=== PATIENT | female | born 1945 | race Caucasian/White ===

== ENCOUNTER → 2019-09-13 | Outpatient (CLI) | payer MEDICARE | END | disposition home or self-care (01) | LOC: SHCH 09:26 | PROVIDERS: ATTEND Internal Medicine Cardiovascular Disease | DX: I89.0 Lymphedema, not elsewhere classified (principal); I87.2 Venous insufficiency (chronic) (peripheral) | CPT/HCPCS: 93970 ==

== ENCOUNTER → 2019-10-24 | Outpatient (CLI) | payer MEDICARE | END | disposition home or self-care (01) | LOC: SHCH 08:34 | PROVIDERS: ATTEND Internal Medicine Cardiovascular Disease | DX: I82.812 Embolism and thrombosis of superficial veins of left lower extremity (principal); Z09 Encounter for follow-up examination after completed treatment for conditions other than malignant neoplasm | CPT/HCPCS: 93971 ==

== ENCOUNTER → 2020-03-23 | Outpatient (CLI) | payer MEDICARE | END | disposition home or self-care (01) | LOC: RAH 15:04 | PROVIDERS: ATTEND Internal Medicine Cardiovascular Disease | DX: R91.8 Other nonspecific abnormal finding of lung field (principal); I50.32 Chronic diastolic (congestive) heart failure | CPT/HCPCS: 71046 ==

== ENCOUNTER → 2020-03-27 | Outpatient (CLI) | payer MEDICARE | END | disposition home or self-care (01) | LOC: SHCH 14:52 | PROVIDERS: ATTEND Internal Medicine Cardiovascular Disease | DX: I87.2 Venous insufficiency (chronic) (peripheral) (principal) | CPT/HCPCS: 93970 ==

== ENCOUNTER → 2020-05-07 | Outpatient (CLI) | payer MEDICARE | END | disposition home or self-care (01) | LOC: SHCH 10:12 | PROVIDERS: ATTEND Internal Medicine Cardiovascular Disease | DX: I87.2 Venous insufficiency (chronic) (peripheral) (principal); Z09 Encounter for follow-up examination after completed treatment for conditions other than malignant neoplasm | CPT/HCPCS: 93971 ==

== ENCOUNTER → 2021-01-07 | Outpatient (CLI) | payer MEDICARE | END | disposition home or self-care (01) | LOC: RAH 13:02 | PROVIDERS: ATTEND Internal Medicine Cardiovascular Disease | DX: I50.32 Chronic diastolic (congestive) heart failure (principal); I51.7 Cardiomegaly; Z95.0 Presence of cardiac pacemaker | CPT/HCPCS: 71046 ==

== ENCOUNTER → 2022-09-18 | Outpatient (CLI) | payer MEDICARE ==
[~2022-09-18] MED LIST: AMOX-426 PO; APIX5TAB PO; ATOR10TA69 PO; BENZ-70 PO; CALC-1125 PO; EPIN0.3P2 IM; FERR-82 PO; FEXO-263 PO; FLUT16H NS; FLUT1BLS IH; FURO80TA3 PO; GUAI120015 PO; LEVA1.2525 IH; LEVA1.255 IH; LOSA25TA41 PO; MECO10005 PO; METR59LO TP; POTA-79 PO; TRIAM15CRM TP; VITD3 PO
[2022-09-18 12:14] LABS: CREATININE 0.9 mg/dL (0.5-1.5); POTASSIUM 4.8 mmol/L (3.5-5.1)
== END | disposition home or self-care (01) ==
LOC: LAB 08:00
PROVIDERS: ATTEND Internal Medicine Cardiovascular Disease
DX: I50.32 Chronic diastolic (congestive) heart failure (principal)
CPT/HCPCS: 36415; 80048

== ENCOUNTER → 2022-09-23 | Outpatient (CLI) | payer MEDICARE ==
[2022-09-23 12:57] LABS: CREATININE 1.1 mg/dL (0.5-1.5); POTASSIUM 4.7 mmol/L (3.5-5.1)
== END | disposition home or self-care (01) ==
LOC: LAB 09:20
PROVIDERS: ATTEND Internal Medicine Cardiovascular Disease
DX: I50.32 Chronic diastolic (congestive) heart failure (principal)
CPT/HCPCS: 36415; 80048; 83880

== ENCOUNTER → 2022-09-30 | Outpatient (CLI) | payer MEDICARE ==
[~2022-09-30] MED LIST changes: +BENZ-226 PO; -BENZ-70 PO
[2022-09-30 13:03] LABS: CREATININE 1.3 mg/dL (0.5-1.5); MAGNESIUM 2.2 mg/dL (1.80-2.40); POTASSIUM 4.8 mmol/L (3.5-5.1)
== END | disposition home or self-care (01) ==
LOC: LAB 08:38
PROVIDERS: ATTEND Internal Medicine Cardiovascular Disease
DX: I11.0 Hypertensive heart disease with heart failure (principal); I50.32 Chronic diastolic (congestive) heart failure
CPT/HCPCS: 36415; 80048; 83735; 83880

== ENCOUNTER → 2022-12-01 | Outpatient (CLI) | payer MEDICARE ==
[2022-12-01 12:33] LABS: BASOPHILS % (AUTO) 0.3 % (0.0-5.0); EOSINOPHILS % (AUTO) 1.3 % (0.0-8.0); HEMATOCRIT 42.1 % (36-48); LYMPHOCYTES % (AUTO) 31.1 % (21.0-51.0); MEAN CORPUSCULAR HEMOGLOBIN 28.3 pg (27.0-33.0); MEAN CORPUSCULAR HGB CONC 31.8 g/dL (32.0-36.0); MEAN CORPUSCULAR VOLUME 88.8 fL (79-99); MONOCYTES % (AUTO) 8.8 % (3.0-13.0); PLATELET COUNT (AUTO) 354 K/uL (130-400); RED BLOOD CELL COUNT(AUTO) 4.74 MIL/uL (4.00-5.50); WHITE BLOOD COUNT (AUTO) 12.6 K/uL (4.8-10.8)
[2022-12-01 12:43] LABS: INR 1.01 (0.85-1.15)
[2022-12-01 12:44] LABS: PARTIAL THROMBOPLASTIN TIME 31.7 SEC (26.3-35.5)
[2022-12-01 12:54] LABS: CREATININE 1.3 mg/dL (0.5-1.5); POTASSIUM 3.7 mmol/L (3.5-5.1)
== END | disposition home or self-care (01) ==
LOC: LAB 09:17
PROVIDERS: ATTEND Internal Medicine Cardiovascular Disease
DX: I87.2 Venous insufficiency (chronic) (peripheral) (principal); I87.1 Compression of vein; I48.91 Unspecified atrial fibrillation; I10 Essential (primary) hypertension; E78.5 Hyperlipidemia, unspecified; E66.9 Obesity, unspecified; Z68.37 Body mass index [BMI] 37.0-37.9, adult; Z79.899 Other long term (current) drug therapy
CPT/HCPCS: 36415; 80048; 85025; 85610; 85730

== ENCOUNTER → 2023-10-07 | Outpatient (CLI) | payer MEDICARE ==
[~2023-10-07] MED LIST changes: +POTA-364 PO; -POTA-79 PO
[2023-10-07 12:09] LABS: BASOPHILS # (AUTO) 0.04 K/uL (0.00-0.20); BASOPHILS % (AUTO) 0.3 % (0.0-5.0); EOSINOPHILS # (AUTO) 0.22 K/uL (0.00-0.70); EOSINOPHILS % (AUTO) 1.8 % (0.0-8.0); HEMATOCRIT 38.7 % (36-48); IMMATURE GRANULOCYTE ABSOLUTE 0.05 K/uL (0-1); LYMPHOCYTES # (AUTO) 4.3 K/uL (1.0-4.8); LYMPHOCYTES % (AUTO) 35.8 % (21.0-51.0); MEAN CORPUSCULAR HEMOGLOBIN 28.2 pg (27.0-33.0); MEAN CORPUSCULAR HGB CONC 31.5 g/dL (32.0-36.0); MEAN CORPUSCULAR VOLUME 89.6 fL (79-99); MONOCYTES # (AUTO) 1.1 K/uL (0.1-1.0); MONOCYTES % (AUTO) 8.9 % (3.0-13.0); NEUTROPHILS # (AUTO) 6.4 K/uL (1.8-7.7); NEUTROPHILS % (AUTO) 52.8 % (40.0-77.0); PLATELET COUNT (AUTO) 297 K/uL (130-400); RED BLOOD CELL COUNT(AUTO) 4.32 MIL/uL (4.00-5.50); WHITE BLOOD COUNT (AUTO) 12.1 K/uL (4.8-10.8)
[2023-10-07 12:16] LABS: ALBUMIN 3.3 g/dL (3.5-5.0); BILIRUBIN,TOTAL 0.7 mg/dL (0.2-1.0); POTASSIUM 4.4 mmol/L (3.5-5.1); TOTAL PROTEIN, SERUM 7.8 g/dL (6.0-8.3)
== END | disposition home or self-care (01) ==
LOC: LAB 08:05
PROVIDERS: ATTEND Internal Medicine Cardiovascular Disease
DX: I48.0 Paroxysmal atrial fibrillation (principal); D68.59 Other primary thrombophilia; I10 Essential (primary) hypertension; E78.5 Hyperlipidemia, unspecified
CPT/HCPCS: 36415; 80053; 80061; 85025

== ENCOUNTER → 2023-10-13 | Outpatient (CLI) | payer MEDICARE ==
[2023-10-13 12:36] LABS: CREATININE 0.9 mg/dL (0.5-1.5); MAGNESIUM 2.2 mg/dL (1.80-2.40)
== END | disposition home or self-care (01) ==
LOC: LAB 10:16
PROVIDERS: ATTEND Internal Medicine Cardiovascular Disease
DX: I48.20 Chronic atrial fibrillation, unspecified (principal); I50.32 Chronic diastolic (congestive) heart failure
CPT/HCPCS: 36415; 80048; 83735; 83880

== ENCOUNTER → 2023-11-24 | Outpatient (CLI) | payer MEDICARE ==
[2023-11-24 12:07] LABS: BASOPHILS # (AUTO) 0.05 K/uL (0.00-0.20); BASOPHILS % (AUTO) 0.3 % (0.0-5.0); EOSINOPHILS # (AUTO) 0.35 K/uL (0.00-0.70); EOSINOPHILS % (AUTO) 2.3 % (0.0-8.0); HEMATOCRIT 41.5 % (36-48); IMMATURE GRANULOCYTE ABSOLUTE 0.09 K/uL (0-1); LYMPHOCYTES # (AUTO) 4.3 K/uL (1.0-4.8); LYMPHOCYTES % (AUTO) 27.9 % (21.0-51.0); MEAN CORPUSCULAR HEMOGLOBIN 28.7 pg (27.0-33.0); MEAN CORPUSCULAR HGB CONC 31.1 g/dL (32.0-36.0); MEAN CORPUSCULAR VOLUME 92.2 fL (79-99); MONOCYTES # (AUTO) 1.5 K/uL (0.1-1.0); MONOCYTES % (AUTO) 9.5 % (3.0-13.0); NEUTROPHILS # (AUTO) 9.1 K/uL (1.8-7.7); NEUTROPHILS % (AUTO) 59.4 % (40.0-77.0); PLATELET COUNT (AUTO) 260 K/uL (130-400); RED CELL DISTRIBUTION WIDTH 14.4 % (11.0-15.5); WHITE BLOOD COUNT (AUTO) 15.3 K/uL (4.8-10.8)
[2023-11-24 12:19] LABS: INR <= 0.93 (0.85-1.15); PROTHROMBIN TIME 10.5 SEC (9.6-11.6)
[2023-11-24 12:20] LABS: PARTIAL THROMBOPLASTIN TIME 28.3 SEC (26.3-35.5)
[2023-11-24 12:23] LABS: CREATININE 0.8 mg/dL (0.5-1.0); POTASSIUM 5.2 mmol/L (3.5-5.1)
== END | disposition home or self-care (01) ==
LOC: LAB 09:06
PROVIDERS: ATTEND Internal Medicine Cardiovascular Disease
DX: R60.9 Edema, unspecified (principal); I48.91 Unspecified atrial fibrillation
CPT/HCPCS: 36415; 80048; 85025; 85610; 85730

== ENCOUNTER 2023-12-02 13:10 | Observation (INO) | payer MEDICARE ==
[~2023-12-02] VITALS: Ht 160 cm; Wt 99.8 kg
[2023-12-02] VITALS (11 sets, daily range): BP systolic 77–141; BP diastolic 34–72; PULSE 68–91; RESP 16–18; O2SAT 92–95
[2023-12-02] MEDS ORDERED: LIDOCAINE HCL 400MG/20ML VIAL ONE (13:40)
[2023-12-02] MEDS ORDERED: HEPARIN 10,000 UNIT/10ML (1,000 UNIT/ML) VIAL ONE (13:40)
[2023-12-02] MEDS ORDERED: IODIXANOL 320 MG/ML 100 ML VIAL ONE (13:40)
[2023-12-02 13:48] LABS: BASOPHILS # (AUTO) 0.03 K/uL (0.00-0.20); BASOPHILS % (AUTO) 0.2 % (0.0-5.0); EOSINOPHILS # (AUTO) 0.35 K/uL (0.00-0.70); EOSINOPHILS % (AUTO) 2.7 % (0.0-8.0); HEMATOCRIT 26.5 % (36-48); IMMATURE GRANULOCYTE ABSOLUTE 0.07 K/uL (0-1); LYMPHOCYTES # (AUTO) 2.6 K/uL (1.0-4.8); LYMPHOCYTES % (AUTO) 19.9 % (21.0-51.0); MEAN CORPUSCULAR HEMOGLOBIN 28.5 pg (27.0-33.0); MEAN CORPUSCULAR HGB CONC 32.8 g/dL (32.0-36.0); MEAN CORPUSCULAR VOLUME 86.9 fL (79-99); MONOCYTES # (AUTO) 0.9 K/uL (0.1-1.0); MONOCYTES % (AUTO) 6.8 % (3.0-13.0); NEUTROPHILS # (AUTO) 9.2 K/uL (1.8-7.7); NEUTROPHILS % (AUTO) 69.9 % (40.0-77.0); PLATELET COUNT (AUTO) 225 K/uL (130-400); RED BLOOD CELL COUNT(AUTO) 3.05 MIL/uL (4.00-5.50); RED CELL DISTRIBUTION WIDTH 13.9 % (11.0-15.5); WHITE BLOOD COUNT (AUTO) 13.2 K/uL (4.8-10.8)
[2023-12-02 13:58] LABS: CREATININE 0.8 mg/dL (0.5-1.0); POTASSIUM 3.7 mmol/L (3.5-5.1)
[2023-12-02 14:02] LABS: ALBUMIN 2.2 g/dL (3.5-5.0); BILIRUBIN,TOTAL 0.6 mg/dL (0.2-1.0); TOTAL PROTEIN, SERUM 5.6 g/dL (6.0-8.3)
[2023-12-02] MEDS ORDERED: NITROGLYCERIN 50MG VIAL ONE (14:11)
[2023-12-02 14:23] LABS: INR 1.04 (0.85-1.15); PROTHROMBIN TIME 12.2 SEC (9.6-11.6)
[2023-12-02 14:25] LABS: PARTIAL THROMBOPLASTIN TIME 39.6 SEC (26.3-35.5)
[2023-12-02] MEDS ORDERED: DIPHENHYDRAMINE HCL 25 MG CAPSULE PO PRN (15:30)
[2023-12-02] MEDS ORDERED: LACTULOSE 20 GM/30 ML UDCUP PO PRN (15:30)
[2023-12-02] MEDS ORDERED: FAMOTIDINE 20MG VIAL IV PRN (15:30)
[2023-12-02] MEDS ORDERED: GUAIFENESIN-DM 200/20 MG 10 ML PO PRN (15:30)
[2023-12-02] MEDS ORDERED: MAG/ALUM/SIMETH 30 ML UDCUP PO PRN (15:30)
[2023-12-02] MEDS ORDERED: NITROGLYCERIN 0.4 MG SL TAB SL PRN (15:30)
[2023-12-02] MEDS ORDERED: DiphenhydrAMINE HCL 50 MG/ML VIAL IV PRN (15:30)
[2023-12-02] MEDS ORDERED: ACETAMINOPHEN 325 MG TAB PO PRN (15:30)
[2023-12-02] MEDS ORDERED: ONDANSETRON 4MG INJ IV PRN (15:30)
[2023-12-02] MEDS ORDERED: IPRATROPIUM/ALBUTEROL SULFATE 3 ML SOLUTION IH PRN (17:00)
[2023-12-02 17:51] LABS: HEMATOCRIT 27.6 % (36-48)
[2023-12-02] MEDS: BUDESONIDE 0.25 MG/2 ML INH IH SCH (18:53)
[2023-12-02] MEDS: ACETAMINOPHEN 325 MG TAB PO PRN (19:23)
[2023-12-02] MEDS: ATORVASTATIN 10 MG TABLET PO SCH (21:03)
[2023-12-02] MEDS: FAMOTIDINE 20MG TAB PO SCH (21:03)
[2023-12-03 03:24] VITALS: BP 127/53; PULSE 69; RESP 16
[2023-12-03 03:47] LABS: HEMATOCRIT 27.2 % (36-48); MEAN CORPUSCULAR HEMOGLOBIN 28.9 pg (27.0-33.0); MEAN CORPUSCULAR HGB CONC 32.4 g/dL (32.0-36.0); MEAN CORPUSCULAR VOLUME 89.5 fL (79-99); RED BLOOD CELL COUNT(AUTO) 3.04 MIL/uL (4.00-5.50); RED CELL DISTRIBUTION WIDTH 13.9 % (11.0-15.5); WHITE BLOOD COUNT (AUTO) 10.1 K/uL (4.8-10.8)
[2023-12-03 04:05] LABS: CREATININE 0.7 mg/dL (0.5-1.0); POTASSIUM 4.2 mmol/L (3.5-5.1)
[2023-12-03 07:09] VITALS: PULSE 72; RESP 18
[2023-12-03 07:12] VITALS: PULSE 72; RESP 18; O2SAT 92
[2023-12-03] MEDS ORDERED: CLOP-31 PO (07:24)
[2023-12-03] MEDS ORDERED: ATOR10 PO (07:24)
[2023-12-03] MEDS ORDERED: ASPI-1005 PO (07:24)
[2023-12-03 08:42] VITALS: BP 127/45; PULSE 70; RESP 18
[2023-12-03] MEDS: MONTELUKAST SODIUM 10 MG TAB PO SCH (08:45)
[2023-12-03] MEDS: CLOPIDOGREL 75MG TAB PO SCH (08:45)
[2023-12-03] MEDS: METOLAZONE 2.5 MG TABLET PO SCH (08:45)
[2023-12-03] MEDS: CETIRIZINE HCL 5 MG TABLET PO SCH (08:46)
[2023-12-03] MEDS: ASPIRIN 81MG CHEW TAB PO SCH (08:46)
[2023-12-03] MEDS: SPIRONOLACTONE 25 MG TAB PO SCH (08:46)
[2023-12-03] MEDS: FUROSEMIDE 40 MG TABLET PO SCH (08:46)
[2023-12-03] MEDS: FLUTICASONE PROPIONATE 50MCG/SPRAY 16 GM BOTTLE EN SCH (08:51)
== END 2023-12-03 11:49 | disposition home or self-care (01) ==
LOC: EDH 13:10 → EDHIP 15:07 → 2AH 16:00
PROVIDERS: ADMIT Internal Medicine; ATTEND Internal Medicine
DX: T82.838A Hemorrhage due to vascular prosthetic devices, implants and grafts, initial encounter (principal); I48.20 Chronic atrial fibrillation, unspecified; M79.81 Nontraumatic hematoma of soft tissue; E11.9 Type 2 diabetes mellitus without complications; I11.0 Hypertensive heart disease with heart failure; I50.32 Chronic diastolic (congestive) heart failure; G47.33 Obstructive sleep apnea (adult) (pediatric); D50.0 Iron deficiency anemia secondary to blood loss (chronic); E66.9 Obesity, unspecified; E78.5 Hyperlipidemia, unspecified; I44.7 Left bundle-branch block, unspecified; J44.9 Chronic obstructive pulmonary disease, unspecified; K21.9 Gastro-esophageal reflux disease without esophagitis; E78.00 Pure hypercholesterolemia, unspecified; Z90.710 Acquired absence of both cervix and uterus; Z95.0 Presence of cardiac pacemaker; Z79.82 Long term (current) use of aspirin; Z79.899 Other long term (current) drug therapy
CPT/HCPCS: 93005; 94664; 85014; 85018; 37226; 99284; 84484; 80053; 85025; 85610; 85730; 36415 ×2; 94640 ×2; 80048; 85027; G0378 ×21; C1887; C1760; C1893; C1874; C1769 ×2; J3490 ×2; Q9967; 75710; J1644

== ENCOUNTER → 2024-01-19 | Outpatient (CLI) | payer MEDICARE ==
[~2024-01-19] MED LIST changes: -AMOX-426 PO; -APIX5TAB PO; +ASPI-1005 PO; +ATOR10 PO; -ATOR10TA69 PO; -BENZ-226 PO; -CALC-1125 PO; +CLOP-31 PO; -EPIN0.3P2 IM; -FERR-82 PO; -FEXO-263 PO; -FLUT16H NS; -FLUT1BLS IH; -FURO80TA3 PO; -GUAI120015 PO; -LEVA1.2525 IH; -LEVA1.255 IH; -LOSA25TA41 PO; -MECO10005 PO; -METR59LO TP; -POTA-364 PO; -TRIAM15CRM TP; -VITD3 PO
[2024-01-19 12:00] LABS: BASOPHILS # (AUTO) 0.04 K/uL (0.00-0.20); BASOPHILS % (AUTO) 0.3 % (0.0-5.0); EOSINOPHILS # (AUTO) 0.15 K/uL (0.00-0.70); EOSINOPHILS % (AUTO) 1.2 % (0.0-8.0); HEMATOCRIT 41.7 % (36-48); IMMATURE GRANULOCYTE ABSOLUTE 0.05 K/uL (0-1); LYMPHOCYTES # (AUTO) 4.4 K/uL (1.0-4.8); LYMPHOCYTES % (AUTO) 34.4 % (21.0-51.0); MEAN CORPUSCULAR HGB CONC 31.9 g/dL (32.0-36.0); MEAN CORPUSCULAR VOLUME 90.8 fL (79-99); MONOCYTES # (AUTO) 1.1 K/uL (0.1-1.0); MONOCYTES % (AUTO) 8.3 % (3.0-13.0); NEUTROPHILS # (AUTO) 7.1 K/uL (1.8-7.7); NEUTROPHILS % (AUTO) 55.4 % (40.0-77.0); PLATELET COUNT (AUTO) 302 K/uL (130-400); RED BLOOD CELL COUNT(AUTO) 4.59 MIL/uL (4.00-5.50); RED CELL DISTRIBUTION WIDTH 14.5 % (11.0-15.5); WHITE BLOOD COUNT (AUTO) 12.8 K/uL (4.8-10.8)
[2024-01-19 12:07] LABS: POTASSIUM 4.5 mmol/L (3.5-5.1)
== END | disposition home or self-care (01) ==
LOC: LAB 11:16
PROVIDERS: ATTEND Internal Medicine Cardiovascular Disease
DX: I87.1 Compression of vein (principal); I48.0 Paroxysmal atrial fibrillation; D68.59 Other primary thrombophilia
CPT/HCPCS: 36415; 80048; 85025

== ENCOUNTER → 2024-08-01 | Outpatient (CLI) | payer MEDICARE ==
[~2024-08-01] MED LIST changes: +ACET-2247 PO; +APIX5TAB PO; +BENZ-226 PO; +CETI5TAB12 PO; -CLOP-31 PO; +CYAN-52 PO; +FERS325 PO; +FEXO-263 PO; +FLUT1BLS IH; +FURO40TA5 PO; +IPRA0.2S54 NEB; +IPRA3AMP24 IH; +LETR2.5T7 PO; +LEVA1.2542 IH; +LEVA15HF6 IH; +LINE600T11 PO; +MONT-39 PO; +OMAL75SY SQ; +POTA-202 PO; +SPIR25TA6 PO
[2024-08-01 11:47] LABS: BASOPHILS # (AUTO) 0.04 K/uL (0.00-0.20); BASOPHILS % (AUTO) 0.3 % (0.0-5.0); EOSINOPHILS # (AUTO) 0.33 K/uL (0.00-0.70); EOSINOPHILS % (AUTO) 2.1 % (0.0-8.0); HEMATOCRIT 42.4 % (36-48); IMMATURE GRANULOCYTE ABSOLUTE 0.09 K/uL (0-1); LYMPHOCYTES # (AUTO) 5.3 K/uL (1.0-4.8); LYMPHOCYTES % (AUTO) 34.1 % (21.0-51.0); MEAN CORPUSCULAR HEMOGLOBIN 29.3 pg (27.0-33.0); MEAN CORPUSCULAR HGB CONC 31.8 g/dL (32.0-36.0); MONOCYTES # (AUTO) 1.4 K/uL (0.1-1.0); MONOCYTES % (AUTO) 8.8 % (3.0-13.0); NEUTROPHILS # (AUTO) 8.5 K/uL (1.8-7.7); NEUTROPHILS % (AUTO) 54.1 % (40.0-77.0); PLATELET COUNT (AUTO) 341 K/uL (130-400); RED BLOOD CELL COUNT(AUTO) 4.61 MIL/uL (4.00-5.50); RED CELL DISTRIBUTION WIDTH 14.2 % (11.0-15.5); WHITE BLOOD COUNT (AUTO) 15.6 K/uL (4.8-10.8)
[2024-08-01 12:11] LABS: ALBUMIN 3.3 g/dL (3.5-5.0); BILIRUBIN,TOTAL 0.5 mg/dL (0.2-1.0); MAGNESIUM 1.9 mg/dL (1.80-2.40); POTASSIUM 4.8 mmol/L (3.5-5.1); TOTAL PROTEIN, SERUM 7.3 g/dL (6.0-8.3)
[2024-08-01 12:25] LABS: B-TYPE NATRIURETIC PEPTIDE 70 pg/mL (0-100)
== END | disposition home or self-care (01) ==
LOC: LAB 08:05
PROVIDERS: ATTEND Internal Medicine Cardiovascular Disease
DX: Z01.812 Encounter for preprocedural laboratory examination (principal); I87.1 Compression of vein; I48.92 Unspecified atrial flutter; D68.59 Other primary thrombophilia; Z79.899 Other long term (current) drug therapy
CPT/HCPCS: 36415; 80053; 80061; 83735; 83880; 85025

== ENCOUNTER → 2024-08-04 | Outpatient (CLI) | payer MEDICARE ==
[~2024-08-04] MED LIST changes: +IOHEXOL-350 50ML VIAL IV ONE
--- NOTE | 2024-08-04 13:11 | HMCIMG ---
FISTULA GRAM REASON: Unspecified opening ABD wall. COMPARISON: None TECHNIQUE: Fistulogram study was performed. FINDINGS: There are 2 skin openings superficially. There is communication of the 2 skin openings demonstrated by contrast opacification and spillage. No definite opacification of the internal organs are noted. IMPRESSION: Findings as described above.
== END | disposition home or self-care (01) ==
LOC: RAH 09:27
PROVIDERS: ATTEND Family Medicine
DX: S31.105D Unspecified open wound of abdominal wall, periumbilic region without penetration into peritoneal cavity, subsequent encounter (principal); X58.XXXD Exposure to other specified factors, subsequent encounter
CPT/HCPCS: 76080; Q9967

== ENCOUNTER → 2024-11-07 | Outpatient (CLI) | payer MEDICARE ==
[~2024-11-07] MED LIST changes: -IOHEXOL-350 50ML VIAL IV ONE
[2024-11-07 12:17] LABS: CREATININE 0.9 mg/dL (0.5-1.0); POTASSIUM 4.4 mmol/L (3.5-5.1)
== END | disposition home or self-care (01) ==
LOC: LAB 08:23
PROVIDERS: ATTEND Internal Medicine Cardiovascular Disease
DX: I49.01 Ventricular fibrillation (principal); R00.1 Bradycardia, unspecified
CPT/HCPCS: 36415; 80048; 83735

== ENCOUNTER 2024-12-23 05:43 | Day surgery (SDC) | payer MEDICARE ==
[2024-12-20 09:02] LABS: BASOPHILS # (AUTO) 0.03 K/uL (0.00-0.20); BASOPHILS % (AUTO) 0.3 % (0.0-5.0); EOSINOPHILS % (AUTO) 1.9 % (0.0-8.0); HEMATOCRIT 40.9 % (36-48); IMMATURE GRANULOCYTE ABSOLUTE 0.04 K/uL (0-1); LYMPHOCYTES # (AUTO) 2.8 K/uL (1.0-4.8); LYMPHOCYTES % (AUTO) 26.4 % (21.0-51.0); MEAN CORPUSCULAR HEMOGLOBIN 29.1 pg (27.0-33.0); MEAN CORPUSCULAR HGB CONC 31.8 g/dL (32.0-36.0); MEAN CORPUSCULAR VOLUME 91.7 fL (79-99); MONOCYTES # (AUTO) 0.9 K/uL (0.1-1.0); MONOCYTES % (AUTO) 8.7 % (3.0-13.0); NEUTROPHILS # (AUTO) 6.7 K/uL (1.8-7.7); NEUTROPHILS % (AUTO) 62.3 % (40.0-77.0); PLATELET COUNT (AUTO) 223 K/uL (130-400); RED BLOOD CELL COUNT(AUTO) 4.46 MIL/uL (4.00-5.50); RED CELL DISTRIBUTION WIDTH 14.6 % (11.0-15.5); WHITE BLOOD COUNT (AUTO) 10.7 K/uL (4.8-10.8)
[2024-12-20 09:12] LABS: INR 1.11 (0.85-1.15); PROTHROMBIN TIME 11.6 SEC (9.6-11.6)
[2024-12-20 09:13] LABS: PARTIAL THROMBOPLASTIN TIME 28.5 SEC (26.3-35.5)
[2024-12-20 09:14] LABS: CREATININE 0.9 mg/dL (0.5-1.0); POTASSIUM 4.1 mmol/L (3.5-5.1)
[2024-12-20 09:44] VITALS: BP 168/60; PULSE 73; RESP 18; TEMP 97.5
[2024-12-23] VITALS (8 sets, daily range): BP systolic 120–140; BP diastolic 54–61; PULSE 69–72; RESP 14–16; TEMP 97.1
[~2024-12-23] VITALS: Ht 152.4 cm; Wt 99.0 kg
[~2024-12-23 05:43] MED LIST changes: -ACET-2247 PO; -ASPI-1005 PO; -ATOR10 PO; -CETI5TAB12 PO; -CYAN-52 PO; -FERS325 PO; -FEXO-263 PO; -FURO40TA5 PO; +FURO80TA3 PO; -IPRA0.2S54 NEB; -IPRA3AMP24 IH; -LEVA1.2542 IH; -LINE600T11 PO; +POTA-163 PO; -POTA-202 PO; +PRAV20TA4 PO; +TIOT18CA3 IH
[2024-12-23] MEDS ORDERED: BUPIvacaine/PF 0.25% 30ML VIAL IJ ONE (07:13)
[2024-12-23] MEDS ORDERED: IOHEXOL-350 50ML VIAL IV ONE (07:13)
[2024-12-23] MEDS ORDERED: ceFAZolin SODIUM 1 GM VIAL ONE (07:13)
[2024-12-23] MEDS ORDERED: SODIUM BICARB 50MEQ 50ML VIAL 50 ML ONE (07:13)
[2024-12-23] MEDS ORDERED: LIDOCAINE HCL 1% MDV 50ML VIAL ONE (07:13)
[2024-12-23] MEDS ORDERED: FENTanyl CITRate PF 50 MCG/1 ML 2ML VIAL ONE ×2 (07:44→08:48)
[2024-12-23] MEDS ORDERED: MIDAZOLAM HCL 1 MG/ML 2ML VIAL ONE ×4 (07:44→08:48)
[2024-12-23] MEDS ORDERED: BACITRACIN 1 EACH PACKET TP ONE (09:13)
[2024-12-23] MEDS ORDERED: acetaMINOPHEN WITH coDEINE 1 TAB TAB PO PRN ×3 (10:00→10:30)
[2024-12-23] MEDS ORDERED: acetaMINOPHEN 500 MG TABLET PO PRN (10:00)
--- NOTE | 2024-12-23 10:20 | NUR ---
PT CAOX4 VSS NAD LEFT CHEST ASYMPTOMATIC PRESSURE DRESSING INTACT.
--- NOTE | 2024-12-23 11:51 | HMCIMG ---
Exam Type: CHEST 1VW Clinical Information: s/p ICD Comparison: None Findings: The lungs are clear of infiltrates. The heart is enlarged in size. The bony and soft tissue structures of the chest are unremarkable. Left cardiac pacemaker is noted with leads in place. Impression: Clear lungs.
--- NOTE | 2024-12-23 12:10 | NUR ---
BOTH PT AND GIVEN VERBAL AND WRITTEN DISCHARGE INSTRUCTIONS IV REMOVED SITE ASYMPTOMATIC. DRESSING CHANGES EXPLAINED AND DEMONSTRATED TO BOTH. PT WILL BE LEAVING WITH DRIVING
== END 2024-12-23 12:22 | disposition home or self-care (01) ==
LOC: DAH 05:43
PROVIDERS: ATTEND Internal Medicine Cardiovascular Disease
DX: I47.29 Other ventricular tachycardia (principal); I49.01 Ventricular fibrillation; I11.0 Hypertensive heart disease with heart failure; I50.9 Heart failure, unspecified; I48.21 Permanent atrial fibrillation; E66.01 Morbid (severe) obesity due to excess calories; K21.9 Gastro-esophageal reflux disease without esophagitis; G47.33 Obstructive sleep apnea (adult) (pediatric); Z90.49 Acquired absence of other specified parts of digestive tract; Z90.89 Acquired absence of other organs; Z98.890 Other specified postprocedural states; Z88.1 Allergy status to other antibiotic agents; Z88.8 Allergy status to other drugs, medicaments and biological substances; Z99.89 Dependence on other enabling machines and devices
CPT/HCPCS: 80048; 85025; 85610; 85730; 36415; 33249; 33233; 71045; C1721; C1895; J3010 ×2; J0690; J0665; J3490 ×2; J2250 ×4; Q9967; A4215; A6251; A4222; A4221; A4663; A4216; A6258; A4606; A4223 ×3; 99156; 99157; C1896